=== PATIENT | male | born 1970 | race Caucasian/White ===

== ENCOUNTER 2022-11-20 13:43 | Outpatient (OUT) | payer OTHER, SELFPAY ==
[2022-11-20 14:20] LABS: Basophils Percent Auto 0.4 % (0.2-2.0); Eosinophils Absolute Auto 0.2 10^3/uL (0.0-0.7); Eosinophils Percent Auto 2.7 % (0.9-7.0); Hematocrit 43.6 % (42.0-54.0); Hemoglobin 15.4 g/dL (14.0-18.0); Immature Granulocytes Abs Auto 0.04 10^3/uL (0.00-0.03); Immature Granulocytes Pct Auto 0.5 % (0.0-0.5); Lymphocytes Absolute Auto 1.8 10^3/uL (1.2-3.8); Lymphocytes Percent Auto 24.5 % (20.5-60.0); Mean Corpuscular HGB Conc 35.3 g/dL (29.9-35.2); Mean Corpuscular Hemoglobin 28.8 pg (25.9-34.0); Mean Corpuscular Volume 81.6 fL (80.0-94.0); Mean Platelet Volume 9.9 fL (9.5-13.5); Monocytes Absolute Auto 0.5 10^3/uL (0.3-0.8); Monocytes Percent Auto 6.6 % (1.7-12.0); Neutrophils Absolute Auto 4.9 10^3/uL (1.4-6.5); Neutrophils Percent Auto 65.3 % (43.0-75.0); Platelet Count 231 10^3/uL (150-450); Red Blood Count 5.34 10^6/uL (4.70-6.10); Red Cell Distribution Width 12.8 % (11.0-15.0); White Blood Count 7.4 10^3/uL (4.0-11.0)
[2022-11-20 14:40] LABS: Estimated Average Glucose 146 mg/dL; Glycohemoglobin A1C 6.7 % (4.5-6.2)
[2022-11-20 14:58] LABS: Alanine Aminotransferase 52 U/L (16-63); Albumin Globulin Ratio 1.2; Albumin Level 4.1 g/dL (3.4-5.0); Alkaline Phosphatase 83 U/L (46-116); Anion Gap 12.6; Aspartate Amino Transferase 20 U/L (15-37); BUN Creatinine Ratio 21.4; Bilirubin Direct 0.2 mg/dL (0.0-0.2); Bilirubin Total 0.9 mg/dL (0.2-1.0); Carbon Dioxide 28.4 mmol/L (21.0-32.0); Chloride 101 mmol/L (98-107); Chol HDL Ratio 6.7; Cholesterol 208 mg/dL (<=200); Estimated GFR (African America >60 (>=60); Estimated GFR (Non-African Ame >60 (>=60); Globulin 3.3 g/dL; Glucose 237 mg/dL (74-106); HDL Cholesterol 31 mg/dL (40-60); Sodium 139 mmol/L (136-145); Thyroid Stimulating Hormone 1.243 uIU/mL (0.358-3.740); Total Protein 7.4 g/dL (6.4-8.2); Triglycerides 451 mg/dL (<=150); VLDL CHOLESTEROL 90.2 mg/dL
[2022-11-20 15:02] LABS: LDL Cholesterol Direct 108 mg/dL
[2022-11-20 15:12] LABS: Prostate Specific Antigen Scrn 0.41 ng/mL (<=4.00)
== END 2022-11-20 13:44 | disposition home or self-care (01) ==
LOC: LAB 13:46
PROVIDERS: PCP Family Medicine; Visit Provider Family Medicine
DX: Z00.00 Encounter for general adult medical examination without abnormal findings (principal); Z12.5 Encounter for screening for malignant neoplasm of prostate
CPT/HCPCS: 36415; 80048; 80061; 80076; 83036; 83721; 84443; 85025; G0103

== ENCOUNTER 2024-08-28 07:24 | Emergency (ER) | payer OTHER, SELFPAY ==
[2024-08-28 07:24] VITALS: BP 132/84; PULSE 78; TEMP 36.4; O2SAT 96; BMI 43.4
[2024-08-28 07:26] VITALS: PULSE 77
--- NOTE | 2024-08-28 07:32 | CT_ITS ---
The [address] [address] Patient Name: JAGJIT FERREIRA MRN: [id number] date: 1970 Sex: M Assigned Patient Location: ED.MAIN Current Patient Location: ED.MAIN Accession/Order Number: [id number] Exam Date: 08/28/2024 08:37 Report Date: 08/28/2024 08:40 At the request of: DELVIS ANN MD Procedure: CT head/brain wo con CT BRAIN WITHOUT CONTRAST: CLINICAL HISTORY: Vertigo. Dizziness and nausea since yesterday. COMPARISON: None TECHNIQUE: Contiguous axial unenhanced images were obtained through the brain. This CT exam was performed using one or more following dose reduction techniques: Automated exposure control, adjustment of the mA and/or kV according to patient size, or use of iterative reconstruction technique. FINDINGS: The ventricles are normal in size and position. A prominent perivascular spaces visualized on the right. There are no areas of abnormal attenuation. There is no hemorrhage, mass effect or extra-axial collections. There is minimal ethmoid mucosal thickening. The remaining imaged paranasal sinuses and mastoid air cells are clear. CT/CT head/brain wo con IMPRESSION: NO ACUTE INTRACRANIAL ABNORMALITY. Impression dictated by: Jerrica De Anda M.D. 08/28/2024 8:40 AM Dictation Location: [place] [address] Electronically authenticated by: [id number] Y Date: 08/28/2024 08:40
--- NOTE | 2024-08-28 07:32 | ECG_ITS ---
The [facility] Test Date: 2024-08-28 Pat Name: JAGJIT FERREIRA Department: Room: - Gender: Male Public Health Specialist: : 1970 Requested By: 1030 Order Number: [id number] Reading MD: KRISTIE KIDD M.D. Measurements Intervals [place] Rate: 77 P: 255 IN: 140 QRS: 21 QRSD: 96 T: -7 QT: 404 QTc: 436 Interpretive Statements Ectopic atrial rhythm 2440 Incomplete right bundle branch block 9140 abnormal rhythm ECG No previous ECG available for comparison Electronically Signed On 08-28-2024 18:24:38 EDT by KRISTIE KIDD M.D.
--- NOTE | 2024-08-28 07:32 | XR_ITS ---
The [place] [id number] Patient Name: JAGJIT FERREIRA MRN: [id number] date: 1970 Sex: M Assigned Patient Location: ED.MAIN Current Patient Location: ED.MAIN Accession/Order Number: [id number] Exam Date: 08/28/2024 08:36 Report Date: 08/28/2024 08:37 At the request of: DELVIS ANN MD Procedure: XR chest 1V PORTABLE AP ERECT CHEST 0733 hours CLINICAL HISTORY: Vertigo and nausea since yesterday COMPARISON: None Evaluation is slightly limited by large body habitus. The heart is within normal limits. There is no vascular congestion. The lungs, as visualized, are clear. There is no effusion or pneumothorax. The osseous structures are intact. End plate spurring is seen. XR/XR chest 1V IMPRESSION: NO ACUTE FINDINGS Impression dictated by: Jerrica De Anda M.D. 08/28/2024 8:37 AM Dictation Location: [place] [address] Electronically authenticated by: [id number] Y Date: 08/28/2024 08:37
--- NOTE | 2024-08-28 07:33 | ED.GENADUL1 ---
HPI HPI - General Adult General Chief complaint: Dizziness Stated complaint: dizziness Time Seen by Provider: 08/28/24 07:29 Source: patient Mode of arrival: ambulance Limitations: no limitations History of Present Illness HPI narrative: 54-year-old male presents to the emergency department for dizziness. He describes a spinning and off-balance sensation that began yesterday. It subsided and then came back today. If he stands up he feels like he is going to fall down. He has only a minimal headache. There is been no trauma or fever or vomiting. No localized weakness. He has never had these symptoms previously. Related Data Home Medications ?Medication ?Instructions ?Recorded ?Confirmed atorvastatin 40 mg tablet 40 mg PO DAILY 08/28/24 08/28/24 hydrochlorothiazide 25 mg tablet 25 mg PO DAILY 08/28/24 08/28/24 nabumetone 500 mg tablet 500 mg PO BID PRN pain 08/28/24 08/28/24 paroxetine HCl 20 mg tablet 20 mg PO DAILY 08/28/24 08/28/24 semaglutide 0.25 mg or 0.5 mg (2 0.5 mg subcut QWEEK 08/28/24 08/28/24 mg/3 mL) subcutaneous pen injector (Ozempic) trazodone 50 mg tablet 50 mg PO DAILY 08/28/24 08/28/24 Previous Rx's ?Medication ?Instructions ?Recorded meclizine 25 mg tablet 25 mg PO QID PRN dizziness #20 tabs 08/28/24 Allergies Allergy/AdvReac Type Severity Reaction Status Date / Time No Known Drug Allergies Allergy Verified 08/28/24 07:30 Review of Systems ROS Narrative A ten point review of systems is negative except as noted above. PFSH PFSH Social History Little interest or pleasure in doing things: not at all Feeling down, depressed, or hopeless: not at all Exam Narrative Exam Narrative: Nurses note and vital signs reviewed and patient is not hypoxic. General: The patient appears well and in no apparent distress. Patient is resting comfortably on cart. Skin: Warm, dry, no pallor noted. There is no rash noted. Head: Normocephalic, atraumatic Eye: Normal conjunctiva, no drainage, EOMI. PERRL Ears, Nose, Mouth, and Throat: oral mucosa is moist. Nares patent. Cardiovascular: Regular Rate and Rhythm Respiratory: Patient is in no distress, no accessory muscle use, lungs are clear to auscultation, no wheezing, rales or rhonchi Back: non-tender, no CVA tenderness bilaterally to percussion. GI: Soft and nontender Musculoskeletal: The patient has no evidence of calf tenderness, no pitting edema, symmetrical pulses noted bilaterally Neurological: A&O, normal speech; upper and lower extremity strength 5 out of 5 and symmetric Psychiatric: Cooperative Constitutional Vital Signs, click to edit/add: Last Vital Signs Temp 97.5 F L 08/28/24 07:24 Pulse 78 08/28/24 07:24 Resp 16 08/28/24 07:24 BP 132/84 08/28/24 07:24 Pulse Ox 98 08/28/24 07:41 O2 Del Method Room Air 08/28/24 07:41 Course Vital Signs Vital signs: Vital Signs Temperature 97.5 F L 08/28/24 07:24 Pulse Rate 78 08/28/24 07:24 Respiratory Rate 16 08/28/24 07:24 Blood Pressure 132/84 08/28/24 07:24 Pulse Oximetry 96 08/28/24 07:24 Oxygen Delivery Method Room Air 08/28/24 07:24 Temperature 97.5 F L 08/28/24 07:24 Pulse Rate 78 08/28/24 07:24 Respiratory Rate 16 08/28/24 07:24 Blood Pressure 132/84 08/28/24 07:24 Pulse Oximetry 98 08/28/24 07:41 Oxygen Delivery Method Room Air 08/28/24 07:41 Medical Decision Making MDM Narrative Medical decision making narrative: His workup including CT brain is negative. He was given Antivert here and prescribed Antivert and he is able to be released home. The patient is comfortable at this point going home. Treatment diagnosis and follow-up were discussed with the patient and his . Differential Diagnosis Differential Diagnosis: Vertigo, labyrinthitis, intracranial mass, intracranial hemorrhage, anemia Lab Data Lab results reviewed: Yes I reviewed the patient's lab results Labs: Lab Results 08/28/24 Range/Units 07:41 WBC 5.2 (4.0-11.0) 10^3/uL RBC 4.81 (4.70-6.10) 10^6/uL Hgb 14.0 (14.0-18.0) g/dL Hct 38.6 L (42.0-54.0) % MCV 80.2 (80.0-94.0) fL MCH 29.1 (25.9-34.0) pg MCHC 36.3 H (29.9-35.2) g/dL RDW 13.2 (11.0-15.0) % Plt Count 149 L (150-450) 10^3/uL MPV 10.0 (9.5-13.5) fL Neut % (Auto) 57.5 (43.0-75.0) % Lymph % (Auto) 27.5 (20.5-60.0) % [place] % (Auto) 10.3 (1.7-12.0) % Eos % (Auto) 2.9 (0.9-7.0) % Baso % (Auto) 0.6 (0.2-2.0) % Neut # (Auto) 3.0 (1.4-6.5) 10^3/uL Lymph # (Auto) 1.4 (1.2-3.8) 10^3/uL [place] # (Auto) 0.5 (0.3-0.8) 10^3/uL Eos # (Auto) 0.2 (0.0-0.7) 10^3/uL Baso # (Auto) 0.0 (0.0-0.1) 10^3/uL Abs Immat Gran (auto) 0.06 H (0.00-0.03) 10^3/uL Imm/Tot Granulo (auto) 1.2 H (0.0-0.5) % Sodium 143 (136-145) mmol/L Potassium 3.6 (3.5-5.1) mmol/L Chloride 105 (98-107) mmol/L Carbon Dioxide 27.7 (21.0-32.0) mmol/L Anion Gap 13.9 BUN 18.0 (7.0-18.0) mg/dL Creatinine 1.03 (0.70-1.30) mg/dL Est GFR ( Amer) >60 (>=60 mL/min/1.73m^2) Est GFR (Non-Af Amer) >60 (>=60 mL/min/1.73m^2) BUN/Creatinine Ratio 17.5 Glucose 214 H (74-106) mg/dL Calcium 8.5 (8.5-10.1) mg/dL Imaging Data CT scan - head: Radiologist's impression: ITS Impressions Chest X-Ray 08/28/24 07:32 IMPRESSION: NO ACUTE FINDINGS Impression dictated by: Jerrica De Anda M.D. 08/28/2024 8:37 AM Dictation Location: [facility] Electronically authenticated by: [id number] Y Date: 08/28/2024 08:[address] 08/28/24 07:32 IMPRESSION: NO ACUTE INTRACRANIAL ABNORMALITY. Impression dictated by: Jerrica De Anda M.D. 08/28/2024 8:40 AM Dictation Location: [facility] Electronically authenticated by: [id number] Y Date: 08/28/2024 08:40 ECG Data Attestation: I personally reviewed and interpreted this ECG as follows: (EKG on my interpretation shows sinus rhythm with rate of 70) Discharge Plan Discharge Chief Complaint: Dizziness Clinical Impression: Vertigo Patient Disposition: Home, Self-Care Time of Disposition Decision: 08:50 Condition: Good Mode of Transportation: Private Vehicle Prescriptions / Home Meds: New meclizine 25 mg tablet 25 mg PO QID PRN (Reason: dizziness) Qty: 20 0RF No Action atorvastatin 40 mg tablet 40 mg PO DAILY hydrochlorothiazide 25 mg tablet 25 mg PO DAILY Ozempic 0.25 mg or 0.5 mg (2 mg/3 mL) pen injector 0.5 mg SUBCUT QWEEK trazodone 50 mg tablet 50 mg PO DAILY paroxetine HCl 20 mg tablet 20 mg PO DAILY nabumetone 500 mg tablet 500 mg PO BID PRN (Reason: pain) Print Language: Bahraini Instructions: Vertigo (ED) Referrals: Yonas Carrazna MD [Primary Care Provider, Family Practice] - 1 week
--- OUTSIDE RECORDS SUMMARY | 2024-08-28 07:33 | XMS_ITS | Patient Health Record ---
Author Organization [facility] Address [address] [place] [address] Care Team Providers Care Promotion Writer Name Role Phone Yonas Carranza Primary Care Provider Chetan Giraldo Unavailable [phone] Self, Referral Unavailable Unavailable Reason For Referral No Information Medications Medication SIG (Take, Route, Fr equency, Duration) Notes Start Date End Date Status Vitamin C Active Tylenol Active NexIUM Active Flonase Active Aleve Active hydroCHLOROthiazide Active multivitamin Active Advil Active ZyrTEC Active Social History Tobacco Use: Social History Observation Description Date Details (start date - stop date) Never Smoker NA - NA Smoking History Question Answer Notes Smoking Status NonSmoker Problems Problem Type SNOMED Code ICD Code Onset Dates Problem Status W/U Status Risk Notes Problem [id number] Primary osteoarthritis of left knee (M17.12) Active confirmed Problem 85329347 Acute pain of le ft knee (M25.562) Active confirmed Plan Of Treatment No Information Insurance Providers Payer Name Payer Address Payer Phone Subscriber Number Group Number Insured Name Patient Relationship to Insured Coverage Start Date Coverage End Date Medical [facility] [place] [address] [place] [address] [id number] JAGJIT FERREIRA Self - patient is the insured Medical (General) History Medical History History ICD Code High Blood Pressure: Yes Sleep apnea: Yes CPAP Machine: Yes Do you use the CPAP machine? Yes Surgical History Surgery Date(Month/Year) left knee 1994 1995 wisdom teeth 12/2017 carpal tunnel-sol hands
--- OUTSIDE RECORDS SUMMARY | 2024-08-28 07:33 | XMS_ITS | Clinical Summary ---
Author Organization [facility] Address [address] [place] [address] Care Team Providers Care Manager Technical Training Name Role Phone Yonas Carranza MD Unavailable Yonas Carranza MD Primary Care Provider [phone] Allergies No known active allergies Medications albuterol (2.5 MG/3ML) 0.083% nebulizer solutionIndicatio ns:Acute bronchitis due to other specified organisms TAKE 3ml via NEBULIZER EVERY 4 HOURS NEEDED FOR WHEEZING and SHORTNESS OF BREATH 90 mL 2 4 Active semaglutide (Ozempic, 0.25 or 0.5 MG/DOSE,) 2 MG/1.5ML solution pen-injectorIndic ations:Type 2 diabetes mellitus with hyperglycemia, without long-term current use of insulin ([facility]) Inject 0.5 mg under the skin 1 (one) time per week 1 each 1 5 Active Blood Glucose Monitoring Suppl (Blood Glucose Monitor System) w/Device kitIndications:Ty pe 2 diabetes mellitus with hyperglycemia, without long-term current use of insulin ([facility]) 1 each Daily 1 kit 5 Active albuterol HFA 90 mcg/act inhalerIndication s:SOB (shortness of breath) Inhale 2 puffs every 4 (four) hours if needed for shortness of breath or wheezing 18 g 2 5 Active hydroCHLOROthiazi de (HYDRODiuril) 25 MG tabletIndications :Essential (primary) hypertension Take 1 tablet (25 mg) by mouth Daily 30 tablet 5 5 Active testosterone cypionate (Depo-Testosteron e) 200 MG/ML injectionIndicati ons:Testicular hypofunction Inject 0.5 mL (100 mg) into the shoulder, thigh, or buttocks every 14 (fourteen) days 10 mL 1 5 Active Semaglutide,0.25 or 0.5MG/DOS, (Ozempic, 0.25 or 0.5 MG/DOSE,) 2 MG/3ML solution pen-injectorIndic ations:Type 2 diabetes mellitus with hyperglycemia, without long-term current use of insulin ([facility]) Inject 0.5 mg under the skin every 7 (seven) days 3 mL 3 5 Active atorvastatin (Lipitor) 40 MG tabletIndications :Hyperlipidemia, unspecified Take 1 tablet (40 mg) by mouth at bedtime 30 tablet 5 5 Active PARoxetine (Paxil) 20 MG tabletIndications :Generalized anxiety disorder Take 1 tablet (20 mg) by mouth Daily 30 tablet 5 5 Active traZODone (Desyrel) 50 MG tabletIndications :Type 2 diabetes mellitus with hyperglycemia, without long-term current use of insulin ([facility]) Take 1 tablet (50 mg) by mouth at bedtime 30 tablet 3 5 Active Glucose Blood (Blood Glucose Test Strips 333) stripIndications: Type 2 diabetes mellitus with hyperglycemia, without long-term current use of insulin ([facility]) 1 each by In Vitro route Daily 50 strip 5 Active Accu-Chek FastClix Lancets miscIndications:T ype 2 diabetes mellitus with hyperglycemia, without long-term current use of insulin ([facility]) Test daily 102 each 5 Active nabumetone (Relafen) 500 MG tabletIndications :Pain in right shoulder Take 1 tablet (500 mg) by mouth 2 (two) times a day as needed for moderate pain or mild pain 60 tablet 5 5 Active Active Problems Problem Noted Date Diagnosed Date Encounter for long-term (current) use of medicat ions 05/06/2024 Annual physical exam 04/07/2024 Assessment & Plan (04/07/2024 10:07 AM EST): Due for labs. Discussed proper diet and regular aerobic exercise. Need aerobic exercise 5-6 days a week for 30 minutes at a time. Smaller portions and limit total calories. Never had colon cancer screening and willing to have cologuard. Tetanus every 10 years. Advised not to smoke. Benign hypertension 2023 Assessment & Plan (04/07/2024 10:07 AM EST): BP elevated but states controlled at home and monitor PRN. Assessment & Plan (2023 3:37 PM EST): BP controlled and monitor PRN. Chronic neck pain 2023 Dyslipidemia 2023 Generalized anxiety disorder 2023 Assessment & Plan (2023 3:37 PM EST): Symptoms controlled with paxil and continue. Gastroesophageal reflux disease 2023 Male hypogonadism 2023 Persistent disorder of initiating or maintaining sleep 2023 Obstructive sleep apnea (adult) (pediatric) 09/2023 Assessment & Plan (2023 3:38 PM EST): Sleeping well with CPAP and continue. Patient is benefiting from PAP therapy. Right shoulder pain 2023 Primary osteoarthritis of left knee 2023 Type 2 diabetes mellitus wit h hyperglycemia, without long-term current use of insulin 2023 Assessment & Plan (04/07/2024 10:07 AM EST): Not checking BS and due for A1C. Stick to ADA diet and limit carbs. Assessment & Plan (2023 3:38 PM EST): Not checking BS and due for A1C. Stick to ADA diet and limit carbs. Vitamin D deficiency 2023 Class 3 severe obesity due t o excess calories with serious comorbidity and body mass index (BMI) of 40.0 to 44.9 in adult 2023 Assessment & Plan (04/07/2024 10:07 AM EST): Discussed proper diet and regular aerobic exercise. Recommend Weight Watchers and need to limit calories and smaller portions. Need to increase activity and regular aerobic exercise several days a week for 30 minutes at a time. Primary insomnia 2023 Assessment & Plan (04/07/2024 10:07 AM EST): Not sleeping well and try trazodone. Assessment & Plan (2023 3:38 PM EST): Sleeping well with restoril and use PRN. Resolved Problems Problem Noted Date Diagnosed Date Resolved Date Acute bronchitis due to othe r specified organisms 2023 04/07/2024 Assessment & Plan (2023 3:37 PM EST): Continued symptoms and complete levaquin. Treat with prednisone tapered over 12 days. Use albuterol PRN. Encounters Date Type Department Care Team Description 07/08/2024 Refill [facility] [address] [place] [phone] Yonas Carranza MD Pain in right shoulder 07/06/2024 Refill [facility] [address] [place] [phone] Yonas Carranza MD Pain in right shoulder 07/06/2024 Refill [facility] [address] [place] [phone] Yonas Carranza MD Type 2 diabetes mellitus with hyperglycemia, without long-term current use of insulin (HCC) from Last 3 Months Family History Medical History Relation Name Comments Cancer Father Leukemia Father No Known Problems Mother Relation Name Status Comments Father Mother Social History Tobacco Use Types Packs/Day Years Used Date Smoking Tobacco: Never Smokeless Tobacco: Never Tobacco Cessation:Counseling Given: Not Answered Social Connection and Isolation Panel [NHANES] A nswer Date Recorded Frequency of Communication with Friends and Fami ly Not on file 04/07/2024 Frequency of Social Gatherings with Friends and Family Not on file 04/07/2024 Attends Caodaism Services Not on file 04/07 Active Member of Clubs or Organizations Not on f ile 04/07/2024 Attends Club or Organization Meetings Not on julia e 04/07/2024 Are you , , di vorced, , never , or living with a partner? 04/07/2024 AUDIT-C Answer Date Recorded Q1: How often do you have a drink containing alcohol? Never 04/07/2024 Q2: How many drinks containi ng alcohol do you have on a typical day when you are drinking? Patient does not drink Q3: How often do you have si x or more drinks on one occasion? Never 04/07/2024 [facility] ional [facility] - Occupational Stress Questionnaire Answer Date Recorded Do you feel stress - tense, restless, nervous, or anxious, or unable to sleep at night because your mind is troubled all the time - these days? To some extent 04/07/2024 Exercise Vital Sign Answer Date Recorde d On average, how many days pe r week do you engage in moderate to strenuous exercise (like a brisk walk)? 4 days 02/26/2023 On average, how many minutes do you engage in exercise at this level? 40 min 02/26/2023 Sex and Gender Information Value Date Recorded Sex Assigned at Not on file Legal Sex Male 7:22 PM EDT Gender Identity Not on file Sexual Orientation Not on file Last Filed Vital Signs Vital Sign Reading Time Taken Comments Blood Pressure 162/102 04/07/2024 9:12 AM EST Pulse 79 04/07/2024 9:12 AM EST Temperature 36.1 C (97 F) 04/07/2024 9:12 AM EST Respiratory Rate - - Oxygen Saturation 96% 04/07/2024 9:12 AM EST Inhaled Oxygen Concentration - - Weight 118 kg (261 lb) 04/07/2024 9:12 AM EST Height 165.1 cm (5' 5 ) 04/07/2024 9:12 AM EST Body Mass Index 43.43 04/07/2024 9:12 AM EST Plan of Treatment Upcoming Encounters Date Type Department Care Team (Late st Contact Info) Description 10/13/2024 8:45 AM EDT Office Visit [facility] [address] [place] [address] Yonas Carranza MD [address] [place] [address] Health Maintenance Due Date Last Done Comments CT Colonography 1972 Colonoscopy 1972 FIT 1970 FOBT 1970 Sigmoidoscopy 1970 Diabetes: Urine Protein Screening 1991 Diabetes: Hemoglobin A1C 07/12/2024 04/14/2024 Influenza Vaccine (#1) 2024 4, 01/11/2012, 01/24/2010 Diabetes: Retinopathy Screening 01/29/2025 Colorectal Cancer Screening 05/12/2027 FIT-DNA 05/12/2027 05/11/2024 Goals Goal Patient Goal Type Associated Problems Recent Progress Patient-Stated? Author Help patient manage antidepressant medication Care Plan Patient on antidepressant monitoring plan No XAVIER AMARO Baseline PHQ-9 Care Plan Baseline PHQ-9 No XAVIER AMARO Procedures Procedure Name Priority Date/Time Associated Diagnosis Comments LAB COLOGUARD COLON CANCER SCREEN Routine 05/11/2024 11:00 AM EDT Colon cancer screening HEMOGLOBIN A1C Routine 04/14/2024 10:38 AM EST Annual physical exam from Last 3 Months or Most Recently Relevant to Health Maintenance Results * Cologuard?? colon cancer screening (05/11/2024 11:00 AM EDT) NONINV COLON CA DNA+OCC BLD SCRN STL-IMP Negative Negative 05/16/2024 1:36 PM EDT [facility] (CLIA #:[id number]) Comment: NEGATIVE TEST RESULT. A negative Cologuard result indicates a low likelihood that a colorectal cancer (CRC) or advanced adenoma (adenomatous polyps with more advanced pre-malignant features) is present. The chance that a person with a negative Cologuard test has a colorectal cancer is less than 1 in 1500 (negative predictive value >99.9%) or has an advanced adenoma is less than 5.3% (negative predictive value 94.7%). These data are based on a prospective cross-sectional study of 10,000 individuals at average risk for colorectal cancer who were screened with both Cologuard and colonoscopy. (Juany Perez al, N Engl J Med 2014;370(14):0918-1386) The normal value (reference range) for this assay is negative. COLOGUARD RE-SCREENING RECOMMENDATION: Periodic colorectal cancer screening is an important part of preventive healthcare for asymptomatic individuals at average risk for colorectal cancer. Following a negative Cologuard result, the [place] Cancer Society and U.S. Multi-Society Task Force screening guidelines recommend a Cologuard re-screening interval of 3 years. References: [place] [employer] Guideline for Colorectal Cancer Screening: https://www.cancer.org/cancer/slepy-xyqmap-ckxras/jotsgqlzg-soossarkv-zgyhwhy/ac s-rec ommendations.html.; Cornelio DK, Josh REZA, Maria T ReddyK, Colorectal Cancer Screening: Recommendations for Physicians and Patients from the U.S. Multi-Society Task Force on Colorectal Cancer Screening , Am J Gastroenterology 2017; 112:5701-0250. TEST DESCRIPTION: Composite algorithmic analysis of stool DNA-biomarkers with hemoglobin immunoassay. Quantitative values of individual biomarkers are not reportable and are not associated with individual biomarker result reference ranges. Cologuard is intended for colorectal cancer screening of adults of either sex, 45 years or older, who are at average-risk for colorectal cancer (CRC). Cologuard has been approved for use by the U.S. FDA. The performance of Cologuard was established in a cross sectional study of average-risk adults aged 50-84. Cologuard performance in patients ages 45 to 49 years was estimated by sub-group analysis of near-age groups. Colonoscopies performed for a positive result may find as the most clinically significant lesion: colorectal cancer [4.0%], advanced adenoma (including sessile serrated polyps greater than or equal to 1cm diameter) [20%] or non- advanced adenoma [31%]; or no colorectal neoplasia [45%]. These estimates are derived from a prospective cross-sectional screening study of 10,000 individuals at average risk for colorectal cancer who were screened with both Cologuard and colonoscopy. (Juany Naranjo, N Engl J Med 2014;370(14):1171-6073.) Cologuard may produce a false negative or false positive result (no colorectal cancer or precancerous polyp present at colonoscopy follow up). A negative Cologuard test result does not guarantee the absence of CRC or advanced adenoma (pre-cancer). The current Cologuard screening interval is every 3 years. ([place] Cancer Society and U.S. Multi-Society Task Force). Cologuard performance data in a 10,000 patient pivotal study using colonoscopy as the reference method can be accessed at the following location: www.[employer]/results. Additional description of the Cologuard test process, warnings and precautions can be found at www.cologuard.com. Stool specimen (specimen) 05/11/2024 11:00 AM EDT 05/13/2024 11:55 AM EDT Yonas Carranza MD LAB MOLECULAR DIAGNOSTICS ORDERA BLES Final Result .[employer] [employer] (CLIA #:[id number]) [address] [address], [employer] (CLIA #:[id number]) [address] [address] * (ABNORMAL) Hemoglobin A1c (04/14/2024 10:38 AM EST) Hemoglobin A1C 10.0(H) <5.7 % of total Hgb [facility] Comment: For someone without known diabetes, a hemoglobin A1c value of 6.5% or greater indicates that they may have diabetes and this should be confirmed with a follow-up test. For someone with known diabetes, a value <7% indicates that their diabetes is well controlled and a value greater than or equal to 7% indicates suboptimal control. A1c targets should be individualized based on duration of diabetes, age, comorbid conditions, and other considerations. Currently, no consensus exists regarding use of hemoglobin A1c for diagnosis of diabetes for children. Blood Venous blood specimen / Unknown 04/14/2024 10:38 AM EST 04/14/2024 10:39 AM EST Narrative [facility] - 04/15/2024 6:53 AM EST PATIENT UNABLE TO VOID; ADVISED TO RETURN FOR COLLECTION. Resulting Agency Comment Performing Organization Information Site ID: QPT Name: [facility] Address: [address] [place] [address] Director: Landon Meneses MD Yonas Carranza MD LAB BLOOD ORDERABLES Final Resul t [facility] from Last 3 Months or Most Recently Relevant to Health Maintenance Additional Health Concerns Active Problems Noted Date Diagnosed Date Patient on antidepressant monitoring plan 2024 Baseline PHQ-9 05/28/2024 Insurance [employer] Care Teams Manager Technical Training Relationship Specialty Start Date End Date Yonas Carranza MD [address] [place] [phone] PCP - Medical [place] [employer] 02/26/15 02/25/99 Yonas Carranza MD [address] [place] [address] PCP - General Family Medicine 04/07/24
--- OUTSIDE RECORDS SUMMARY | 2024-08-28 07:33 | XMS_ITS | Encounter Summary ---
Author Organization [facility] Address [address] [facility] [place] [address] Care Team Providers Care Sand Conditioner Machine Name Role Phone Yonas Carranza MD Primary Care Provider [phone] Yonas Carranza MD Unavailable Yonas Carranza MD Primary Care Provider [phone] Reason for Visit * Reason Comments Med Refill Encounter Details Date Type Department Care Team (Late st Contact Info) Description 09/12/2023 Refill [facility] [address] [place] [phone] Yonas Carranza MD [address] [place] [address] Insomnia, unspecified Social History Tobacco Use Types Packs/Day Years Used Date Smoking Tobacco: Never Smokeless Tobacco: Never Exercise Vital Sign Answer Date Recorde d [...] on file Sexual Orientation Not on file documented as of this encounter Plan of Treatment Upcoming Encounters Date Type Department Care Team (Late st Contact Info) Description 10/13/2024 8:45 AM EDT Office Visit [facility] [address] [place] [address] Yonas Carranza MD [address] [place] [address] documented as of this encounter Visit Diagnoses Diagnosis Insomnia, unspecified documented in this encounter Care Teams Sand Conditioner Machine Relationship Specialty Start Date End Date Yonas Carranza MD PCP - General Family Medicine 11/20/22 04/06/24 Yonas Carranza MD [address] [place] [address] PCP - Medical [place] [employer] 02/26/15 02/25/99 Yonas Carranza MD [address] [place] [address] PCP - General Family Medicine 04/07/24 documented as of this encounter
--- OUTSIDE RECORDS SUMMARY | 2024-08-28 07:34 | XMS_ITS | Clinical Summary ---
Author Organization [facility] Address [id number] [address] [place] [address] Care Team Providers Care Test Rider Name Role Phone Unavailable Primary Care Provider Unavailabl e Social History Tobacco Use Types Packs/Day Years Used Date Smoking Tobacco: Never Assessed Childcare Answer Date Recorded Childcare Unknown 08/07/2018 Employment Answer Date Recorded Employment Unknown 08/07/2018 Sex and Gender Information Value Date Recorded Sex Assigned at Not on file Legal Sex Male 12:01 PM EDT Gender Identity Not on file Sexual Orientation Not on file Plan of Treatment Not on file Medical Devices Not on file
--- OUTSIDE RECORDS SUMMARY | 2024-08-28 07:34 | XMS_ITS | Clinical Summary ---
Author Organization [facility] Address [facility] [place] [address] Care Team Providers Care Data Entry Clerk Name Role Phone Tania Matthews Primary Care Provider [phone] Allergies No known active allergies Medications Saw Agness 80 mg ORAL capsule Take 80 mg by mouth once daily. 0 03/27/19 12 Active Cholecalciferol, Vitamin D3, 1,000 unit ORAL Tab Take 5 tablets by mouth once daily. 0 03/27/19 12 Active multivitamin ORAL tablet Take 1 tablet by mouth once daily. 0 03/27/19 12 Active Glucosamine-Moises droit-Vit C-Mn (GLUCOSAMINE CHONDROITIN MAXSTR) 500-400 mg ORAL Cap Take 1 capsule by mouth three times daily. 0 03/27/19 12 Active lactobacillus rhamnosus (PROBIOTIC) 10 billion cell ORAL capsule Take 1 capsule by mouth once daily. 0 03/27/19 12 Active esomeprazole (NEXIUM) 40 mg ORAL capsule Take 1 capsule by mouth once daily. 0 03/27/19 12 Active loratadine-pseud oephedrine 24hr 10-240 mg (LORATA-DINE D) 10-240 mg ORAL Tb24 Take 1 tablet by mouth once daily as needed. 0 03/27/19 12 Active acetaminophen 500 mg ORAL tablet Take 1 tablet by mouth every 4 hours as needed. 0 03/27/19 12 Active naproxen 500 mg ORAL tablet Take 0.5 tablets by mouth as needed. for pain. Take with food. 0 03/27/19 12 Active Ibuprofen 200 mg ORAL Cap Take by mouth every 4 hours as needed. 0 03/27/19 12 Active testosterone cypionate 200 mg/mL INTRAMUSC. injectionIndicat ions:Other testicular hypofunction Inject 1 mL intramuscularly every 2 weeks. 2 mL 5 06/23/19 12 Active Active Problems Problem Noted Date Diagnosed Date Hypogonadism male 05/29/2011 Family History Medical History Relation Comments Leukemia acute myelocytic [Other] Father age 49, agent orange Hyperlipidemia [Other] Mother Hypertension Mother Relation Status Comments Father Mother Social History Tobacco Use Types Packs/Day Years Used Date Smoking Tobacco: Former Comments:Quit 5 years ago. Alcohol Use Standard Drinks/Week Comments Yes 0 (1 standard drink = 0.6 oz pur e alcohol) Only two or three beers a year Sex and Gender Information Value Date Recorded Sex Assigned at Not on file Legal Sex Male 10:13 AM EST Gender Identity Not on file Sexual Orientation Not on file Last Filed Vital Signs Vital Sign Reading Time Taken Comments Blood Pressure 175/104 04/12/2011 8:15 AM EST Pulse 116 04/12/2011 8:15 AM EST Temperature - - Respiratory Rate 16 04/12/2011 8:15 AM EST Oxygen Saturation 96% 04/12/2011 8:15 AM EST Inhaled Oxygen Concentration - - Weight 130 kg (286 lb 9.6 oz) 03/27/2011 10:39 A M EST Height 168.3 cm (5' 6.26 ) 03/27/2011 10:[address] Body Mass Index 45.9 03/27/2011 10:39 AM EST Plan of Treatment Health Maintenance Due Date Last Done Comments Anxiety Screening 1990 Depression Screening 1990 HIV Screening 1990 Hepatitis C Screening 1990 DTaP,Tdap,Td Vaccine (1 - Tdap) 1991 Hepatitis B Vaccine (1 of 3 - 19+ 3-dose series) 03/[address] Colonography 2017 Cologuard (FIT-DNA) 2017 Colonoscopy 2017 Colorectal Cancer Screening 2017 Diabetes Screening 2017 Fecal Occult Blood 2017 Sigmoidoscopy 2017 Pneumococcal Vaccine: 50+ (1 of 1 - PCV) 2022 Shingrix Vaccine (1 of 2) 2022 Covid-19 Vaccine ( season) 2023 Influenza Vaccine (#1) 2024 Care Teams Data Entry Clerk Relationship Specialty Start Date End Date Tania Matthews [address] [place] [address] PCP - General Family Medicine 02/03/11
--- OUTSIDE RECORDS SUMMARY | 2024-08-28 07:34 | XMS_ITS | Encounter Summary ---
Author Organization [facility] Address [address] [facility] [place] [address] Care Team Providers Care Production Mechanic Name Role Phone Yonas Carranza MD Unavailable Yonas Carranza MD Primary Care Provider [phone] Encounter Details Date Type Department Care Team (Late st Contact Info) Description 04/15/2024 Orders Only [facility] [address] [place] [address] Yonas Carranza MD [address] [place] [id number] Social History Tobacco Use Types Packs/Day Years Used Date Smoking Tobacco: Never Smokeless Tobacco: Never Social Connection and Isolation Panel [NHANES] A nswer Date Recorded Frequency of Communication with Friends and Fami ly Not on file 04/07/2024 Frequency of Social Gatherings with Friends and Family Not on file 04/07/2024 Attends Buddhist Services Not on file 04/07 Active Member [...] more drinks on one occasion? Never 04/07/2024 [facility] [place] of Occupat ional Health - Occupational Stress [...] 8:45 AM EDT Office Visit [facility] [address] [place] [address] Yonas Carranza MD [address] [place] [address] documented as of this encounter Visit Diagnoses Not on filedocumented in this encounter Care Teams Production Mechanic Relationship Specialty Start Date End Date Yonas Carranza MD [address] [place] [phone] PCP - Medical [place] [employer] 02/26/15 02/25/99 Yonas Carranza MD [address] [place] [phone] PCP - General Family Medicine 04/07/24 documented as of this encounter
--- OUTSIDE RECORDS SUMMARY | 2024-08-28 07:34 | XMS_ITS | Encounter Summary ---
Author Organization [facility] Address [address] [facility] [place] [address] Care Team Providers Care Manager Investment Banking Name Role Phone Yonas Carranza MD Unavailable Yonas Carranza MD Primary Care Provider [phone] Encounter Details Date Type Department Care Team (Late st Contact Info) Description 05/06/2024 Orders Only [facility] [address] [place] [address] Yonas Carranza MD [address] [place] [phone] Social History Tobacco Use Types Packs/Day Years Used Date Smoking Tobacco: Never Smokeless Tobacco: Never Social Connection and Isolation Panel [NHANES] A nswer Date Recorded Frequency of Communication with Friends and Fami ly Not on file 04/07/2024 Frequency of Social Gatherings with Friends and Family Not on file 04/07/2024 Attends Temple Services Not on file 04/07 Active Member [...] more drinks on one occasion? Never 04/07/2024 [facility] [place] of Occupat ional Health - Occupational Stress [...] Office Visit [facility] [address] [place] [address] Yonas Carranza MD [address] [place] [address] documented as of this encounter Visit Diagnoses Not on filedocumented in this encounter Care Teams Manager Investment Banking Relationship Specialty Start Date End Date Yonas Carranza MD [address] [place] [phone] PCP - Medical [place] [employer] 02/26/15 02/25/99 Yonas Carranza MD [address] [place] [phone] PCP - General Family Medicine 04/07/24 documented as of this encounter
[2024-08-28 07:41] VITALS: O2SAT 98
[2024-08-28 07:51] LABS: Hematocrit 38.6 % (42.0-54.0); Hemoglobin 14.0 g/dL (14.0-18.0); Immature Granulocytes Abs Auto 0.06 10^3/uL (0.00-0.03); Immature Granulocytes Pct Auto 1.2 % (0.0-0.5); Lymphocytes Absolute Auto 1.4 10^3/uL (1.2-3.8); Mean Corpuscular HGB Conc 36.3 g/dL (29.9-35.2); Mean Corpuscular Hemoglobin 29.1 pg (25.9-34.0); Mean Corpuscular Volume 80.2 fL (80.0-94.0); Platelet Count 149 10^3/uL (150-450); Red Blood Count 4.81 10^6/uL (4.70-6.10); White Blood Count 5.2 10^3/uL (4.0-11.0)
[2024-08-28 07:57] LABS: Anion Gap 13.9; Blood Urea Nitrogen 18.0 mg/dL (7.0-18.0); Calcium 8.5 mg/dL (8.5-10.1); Carbon Dioxide 27.7 mmol/L (21.0-32.0); Chloride 105 mmol/L (98-107); Estimated GFR (African America >60 (>=60 mL/min/1.73m^2); Estimated GFR (Non-African Ame >60 (>=60 mL/min/1.73m^2); Glucose 214 mg/dL (74-106); Potassium 3.6 mmol/L (3.5-5.1); Sodium 143 mmol/L (136-145)
[2024-08-28] MEDS: MECLIZINE HCL 12.5 MG TABLET 25 MG PO (08:29)
== END 2024-08-28 09:09 | disposition home or self-care (01) ==
PROVIDERS: Emergency Provider Emergency Medicine; PCP Family Medicine
DX: R42 Dizziness and giddiness (principal)
CPT/HCPCS: 36415; 70450; 71045; 80048; 85025; 93005; 99285

== ENCOUNTER 2024-12-22 09:49 | Outpatient (OUT) | payer OTHER, SELFPAY ==
--- OUTSIDE RECORDS SUMMARY | 2024-12-22 09:52 | XMS_ITS | Patient Health Record ---
Author Organization [facility] Address [address] [place] [address] Care Team Providers Care Electronic Sales And Service Technician Name Role Phone Jamilahanane Yonas Primary Care Provider Chetan Giraldo Unavailable [phone] Self, Referral Unavailable Unavailable Reason For Referral No Information Medications Medication SIG (Take, Route, Frequency, Duration) Notes Start Date End Date Status Vitamin C ActiveTylenolActiveNexIUMActiveFlonaseActiveAleveActivehydroCHLOROthiazideActive multivitaminActiveAdvilActiveZyrTECActive Social History Tobacco Use: Social History Observation Description Date Details (start date - stop date) Never Smoker NA - NA Smoking History Question Answer Notes Smoking Status NonSmoker Problems Problem Type SNOMED Code ICD Code Onset Dates Problem Status W/U Status Risk Notes Problem [id number] Primary osteoarthritis of left knee (M17.12) [id number] pain of left knee (M25.562)Activeconfirmed Plan Of Treatment No Information Insurance Providers Payer Name Payer Address Payer Phone Subscriber Number Group Number Insured Name Patient Relationship to Insured Coverage Start Date Coverage End Date [facility] [address] [place] [address] [place] [address] [id number] JAGJIT FERREIRA Self - patient is the insured Medical (General) History Medical History History ICD Code High Blood Pressure: Yes Sleep apnea: YesCPAP Machine: YesDo you use the CPAP machine? YesSurgical History Surgery Date(Month/Year) left knee 1994 1995 wisdom teeth 12/2017 carpal tunnel-sol hands
--- OUTSIDE RECORDS SUMMARY | 2024-12-22 09:52 | XMS_ITS | Clinical Summary ---
Author Organization [facility] Healthcare Address [address] [place] [address] Care Team Providers Care Professor Of Spanish Name Role Phone Yonas Carranza MD Unavailable Yonas Carranza MD Primary Care Provider [phone] Allergies No known active allergies Medications MedicationSigDispense QuantityRefillsLast FilledStart DateEnd DateStatus albuterol (2.5 MG/3ML) 0.083% nebulizer solution Indications:Acute bronchitis due to other specified organismsTAKE 3ml via NEBULIZER EVERY 4 HOURS NEEDED FOR WHEEZING and SHORTNESS OF BREATH 90 mL 4Active semaglutide (Ozempic, 0.25 or 0.5 MG/DOSE,) 2 MG/1.5ML solution pen-injector Indications:Type 2 diabetes mellitus with hyperglycemia, without long-term current use of insulin ([facility])Inject 0.5 mg under the skin 1 (one) time per week 1 each 5Active Blood Glucose Monitoring Suppl (Blood Glucose Monitor System) w/Device kit Indications:Type 2 diabetes mellitus with hyperglycemia, without long-term current use of insulin (HCC)1 each Daily 1 kit 5Active albuterol HFA 90 mcg/act inhaler Indications:SOB (shortness of breath)Inhale 2 puffs every 4 (four) hours if needed for shortness of breath or wheezing 18 g 5Active hydroCHLOROthiazide (HYDRODiuril) 25 MG tablet Indications:Essential (primary) hypertensionTake 1 tablet (25 mg) by mouth Daily 30 tablet 5Active testosterone cypionate (Depo-Testosterone) 200 MG/ML injection Indications:Testicular hypofunctionInject 0.5 mL (100 mg) into the shoulder, thigh, or buttocks every 14 (fourteen) days 10 mL 5Active atorvastatin (Lipitor) 40 MG tablet Indications:Hyperlipidemia, unspecifiedTake 1 tablet (40 mg) by mouth at bedtime 30 tablet 5045Active PARoxetine (Paxil) 20 MG tablet Indications:Generalized anxiety disorderTake 1 tablet (20 mg) by mouth Daily 30 tablet 5Active traZODone (Desyrel) 50 MG tablet Indications:Type 2 diabetes mellitus with hyperglycemia, without long-term current use of insulin ([facility])Take 1 tablet (50 mg) by mouth at bedtime 30 tablet 3045Active Glucose Blood (Blood Glucose Test Strips 333) strip Indications:Type 2 diabetes mellitus with hyperglycemia, without long-term current use of insulin ([facility])1 each by In Vitro route Daily 50 strip 1105Active Accu-Chek FastClix Lancets [facility] Indications:Type 2 diabetes mellitus with hyperglycemia, without long-term current use of insulin ([facility])Test daily 102 each 1105Active nabumetone (Relafen) 500 MG tablet Indications:Pain in right shoulderTake 1 tablet (500 mg) by mouth 2 (two) times a day as needed for moderate pain or mild pain 60 tablet 5Active meclizine (Antivert) 25 MG tablet Take 25 mg by mouth 4 (four) times a day as jstygk055Active Semaglutide,0.25 or 0.5MG/DOS, (Ozempic, 0.25 or 0.5 MG/DOSE,) 2 MG/3ML solution pen-injector Indications:Type 2 diabetes mellitus with hyperglycemia, without long-term current use of insulin ([facility])Inject 0.5 mg under the skin every 7 (seven) days 3 mL 5Active Active Problems ProblemNoted DateDiagnosed DateBPPV (benign paroxysmal positional vertigo) 09/01/2024 Assessment & Plan (09/04/2024 11:55 AM EDT): Recent symptoms and improved with home epply maneuvers. PT gave handout for home exercises and use PRN. Use meclizine PRN. Able to return to work 09/09 without restriction. Encounter for long-term (current) use of iioeytwcwac75/11/2025nnual physical exam04/07/2024 Assessment & Plan (04/07/2024 10:07 AM EST): Due for labs. Discussed proper diet and regular aerobic exercise. Need aerobic exercise 5-6 days a week for 30 minutes at a time. Smaller portions and limit total calories. Never had colon cancer screening and willing to have cologuard. Tetanus every 10 years. Advised not to smoke. Benign eeehxvabgnfm90/08/2024 Assessment & Plan (04/07/2024 10:07 AM EST): BP elevated but states controlled at home and monitor PRN. Assessment & Plan (2023 3:37 PM EST): BP controlled and monitor PRN. Chronic neck pain03/05/20237854Ypwthyggatux49/08/2024Generalized anxiety disorder 2023 Assessment & Plan (2023 3:37 PM EST): Symptoms controlled with paxil and continue. Gastroesophageal reflux jmrvjrc5503/05/2023Male yyvrsqsiabkw44/08/2024ersistent disorder of initiating or maintaining sleep2023Obstructive sleep apnea (adult) (pediatric)2023 Assessment & Plan (2023 3:38 PM EST): Sleeping well with CPAP and continue. Patient is benefiting from PAP therapy. Right shoulder pain2023rimary osteoarthritis of left knee2023Type 2 diabetes mellitus with hyperglycemia, without long-term current use of insulin 2023 Assessment & Plan (04/07/2024 10:07 AM EST): Not checking BS and due for A1C. Stick to ADA diet and limit carbs. Assessment & Plan (2023 3:38 PM EST): Not checking BS and due for A1C. Stick to ADA diet and limit carbs. Vitamin D avntbasaot53/08/2024lass 3 severe obesity due to excess calories with serious comorbidity and body mass index (BMI) of40.0 to 44.9 in adult2023 Assessment & Plan (04/07/2024 10:07 AM EST): Discussed proper diet and regular aerobic exercise. Recommend Weight Watchers and need to limit calories and smaller portions. Need to increase activity and regular aerobic exercise several days a week for 30 minutes at a time. Primary whklahwo30/08/2024 Assessment & Plan (04/07/2024 10:07 AM EST): Not sleeping well and try trazodone. Assessment & Plan (2023 3:38 PM EST): Sleeping well with restoril and use PRN. Resolved Problems ProblemNoted DateDiagnosed DateResolved DateAcute bronchitis due to other specified iuvupeuby86 Assessment & Plan (2023 3:37 PM EST): Continued symptoms and complete levaquin. Treat with prednisone tapered over 12 days. Use albuterolPRN. Encounters DateTypeDepartmentCare VrizComdkphoqzu25/11/2025Refill [facility] [address] [place] [address] Yonas Carranza MD Type 2 diabetes mellitus with hyperglycemia, without long-term current use of insulin (HCC)from Last 3 Months Family History Medical HistoryRelationNameCommentsCancerFatherLeukemiaFatherNo Known Problems MotherRelationNameStatusCommentsFatherMother Social History Tobacco UseTypesPacks/DayYears UsedDateSmoking Tobacco: NeverSmokeless Tobacco: Never Tobacco Cessation:Counseling Given: Not Answered Social Connection and Isolation PanelAnswerDate RecordedFrequency of Communication with Friends and FamilyNot on file04/07/2024Frequency of Social Gatherings with Friends and FamilyNot on file04/07/2024ttends Yazdanism ServicesNot on file04/07/2024tive Member of Clubs or OrganizationsNot on file 04/07/2024ttends Club or Organization MeetingsNot on file04/07/2024re you , , , , never , or living with a partner? Sjmwfgb1304/07/2024UDIT-CAnswerDate RecordedQ1: How often do you have a drink containing alcohol?Never04/07/2024Q2: How many drinks containing alcohol do you have on a typical day when you are drinking?Patient does not drink04/07/2024Q3: How often do you have six or more drinks on one occasion?Never04/07/2024[facility] - Occupational Stress QuestionnaireAnswerDate RecordedDo you feel stress - tense, restless, nervous, or anxious, or unable to sleep at night because yourmind is troubled all the time - these days?To some rnenrl3604/07/2024Exercise Vital SignAnswerDate RecordedOn average, how many days per week do you engage in moderate to strenuous exercise (like a brisk walk)?4 days02/26/2023On average, how many minutes do you engage in exercise at this level?40 min02/26/2023Sex and Gender InformationValueDate RecordedSex Assigned at BirthNot on fileLegal LcbEiqa3105/10/2022 7:22 PM EDTGender IdentityNot on file Sexual OrientationNot on file Last Filed Vital Signs Vital SignReadingTime TakenCommentsBlood Rxtyvqmc537/7407 11:21 AM EDT Nvtak2140 11:21 AM XUMSjfdsstoyvx23 ??C (95 ??F)09/04/2024 11:21 AM EDT Respiratory Ytox2717 11:21 AM EDTOxygen Jxmmdwybys27%09/04/2024 11:21 AM EDTInhaled Oxygen Concentration--Zylpia113 kg (264 lb)09/04/2024 11:21 AM EDT Njzaxs992.1 cm (5' 5 )09/04/2024 11:21 AM EDTBody Mass Index43.9309/04/2024 11:21 AM EDT Plan of Treatment Health MaintenanceDue DateLast DoneCommentsCT Frleyvyslyrp72/08/1973Colonoscopy 1972FIT1972FOBT1972 7497Jlpwbbjlkdgtf58/08/1973Diabetes: Urine Protein Atplgpvun47/08/1992Diabetes: Hemoglobin A1C5004/14/2024Influenza Vaccine (#1), 01/11/2012, 01/24/2010Diabetes: Retinopathy Iouxicjzc44olorectal Cancer Uleqyimwe82/16/2028FIT-DNA Goals GoalPatient Goal TypeAssociated ProblemsRecent ProgressPatient-Stated?Author Help patient manage antidepressant medication Care PlanPatient on antidepressant monitoring Judi Flood MA Baseline PHQ-9 Care PlanBaseline PHQ-9Judi Pratt MA Procedures Procedure NamePriorityDate/TimeAssociated DiagnosisCommentsLAB COLOGUARD?? COLON CANCER QUTYNKSrbmkrz10/16/2025 11:00 AM EDT Colon cancer screening HEMOGLOBIN O0FRjnkmgx48/17/2025 10:38 AM EST Annual physical exam from Last 3 Months or Most Recently Relevant to Health Maintenance Results * Cologuard?? colon cancer screening (05/11/2024 11:00 AM EDT)ComponentValueRef RangeTest MethodAnalysis TimePerformed AtPathologist SignatureNONINV COLON CA DNA+OCC BLD SCRN STL-VTNOjgswmhuZizcsprd99/21/2025 1:36 PM EDTEXPowerSmart (CLIA #:[id number])Comment: NEGATIVE TEST RESULT. A negative Cologuard result indicates a low likelihood that a colorectal cancer (CRC) or advanced adenoma (adenomatous polyps with more advanced pre-malignant features) ??is present. The chance that a person with a negative Cologuard test has a colorectal cancer is less than 1in 1500 (negative predictive value >99.9%) or has an advanced adenoma is less than 5.3% (negative predictive value 94.7%). These data are based on a prospective cross-sectional study of 10,000individuals at average risk for colorectal cancer who were screened with both Cologuard and colonoscopy. (Juany Perez al, N Engl J Med 2014;370(14):2083-6625) The normal value (reference range) for this assay is negative. COLOGUARD RE-SCREENING RECOMMENDATION: Periodic colorectal cancer screening is an important part ofpreventive healthcare for asymptomatic individuals at average risk for colorectal cancer. ??Following a negative Cologuard result, the [employer] and U.S. Multi-Society Task Force screening guidelines recommend a Cologuard re-screening interval of 3 years. References: [place] [employer] Guideline for Colorectal Cancer Screening: https://www.cancer.or g/cancer/cquwj-tsuquz-ebpsty/jtpibmpfj-wiqzgavfp-dbdpqla/acs-recommendations.htm keyla; Cornelio ROSAS, Josh REZA, Maria T SONG, Colorectal Cancer Screening: Recommendations for Physicians and Patients from the U.S. Multi-Society Task Force on Colorectal Cancer Screening , Am J Gastroenterology 2017; 112:2701-1948. TEST DESCRIPTION: Composite algorithmic analysis of stool DNA-biomarkers with hemoglobin immunoassay. ?? Quantitative values of individual biomarkers are not reportable and are not associated with individual biomarker result reference ranges. Cologuard is intended for colorectal cancer screening ofadults of either sex, 45 years or older, [...] colonoscopy. (Juany Naranjo, N Engl J Med 2014;370(14):4472-8422.) Cologuard may produce a false negative or false positive result (no colorectal cancer or precancerous polyp present at colonoscopy follow up). A negative Cologuard test result does not guarantee the absence of CRC or advanced adenoma (pre-cancer). The current Cologuard screening interval is every 3 years. ([employer] Society and U.S. Multi-Society Task Force). Cologuard performance data in a 10,000 patient pivotal study using colonoscopy as the reference method can be accessed at the following location: www.[employer].nap- Naturally Attached Parents/results. Additional description of the Cologuard test process, warnings and precautions can be found at www.cologuard.com. Specimen (Source)Anatomical Location / LateralityCollection Method / Volume Collection TimeReceived TimeStool specimen (specimen)05/11/2024 11:00 AM EDT 05/13/2024 11:55 AM EDT Narrative Authorizing ProviderResult TypeResult StatusMarc Naderer MDLAB MOLECULAR DIAGNOSTICS ORDERABLESFinal ResultPerforming OrganizationAddressCity/State/ZIP CodePhone Number .[employer] (CLIA #:[id number]) [address] [address], [place] [phone] [employer] (CLIA #:[id number]) [address] [address] * (ABNORMAL) Hemoglobin A1c (04/14/2024 10:38 AM EST)ComponentValueRef RangeTest MethodAnalysis TimePerformed AtPathologist SignatureHemoglobin A1C10.0(H)<5.7 % of total HgbQUESTComment: For someone without known diabetes, a hemoglobin [...] A1c for diagnosis of diabetes for children. Specimen (Source)Anatomical Location / LateralityCollection Method / Volume Collection TimeReceived TimeBloodVenous blood specimen / Ueezvxk2904/14/2024 10:38 AM EST04/14/2024 10:39 AM EST Narrative [facility] - 04/15/2024 6:53 AM EST PATIENT UNABLE TO VOID; ADVISED TO RETURN FOR COLLECTION. Resulting Agency Comment Performing Organization Information ?Site ID: [id number] ?Name: [facility] ?Address: [address] [place] [address], [address] [place] [id number] ?Director: Landon Meneses MD Authorizing ProviderResult TypeResult StatusMarc Tere MCFARLANELAB BLOOD ORDERABLES Final ResultPerforming OrganizationAddressCity/State/ZIP CodePhone Number [facility] from Last 3 Months or Most Recently Relevant to Health Maintenance Additional Health Concerns Active ProblemsNoted DateDiagnosed DatePatient on antidepressant monitoring plan 5Baseline PHQ-9005/28/[address] [place] [address] MemberSubscriberPlan / Payer (Effective 2022-Present)Name:Abraham Cabrera Relation to Subscriber:SelfName:Abraham Cabrera Payer ID:Not on file Group ID:[id number] Type:Not on file Address: [address] Care Teams Team MemberRelationshipSpecialtyStart DateEnd Date Yonas Carranza MD [address] [place] [phone] PCP - [facility] [place] [employer]02/26/1611 Yonas Carranza MD [address] [place] [phone] PCP - GeneralFamily Medicine04/07/24
--- OUTSIDE RECORDS SUMMARY | 2024-12-22 09:52 | XMS_ITS | Clinical Summary ---
Author Organization [facility] Address [facility] [place] [address] Care Team Providers Care Certified First Assistant Name Role Phone Tania Matthews MD Primary Care Provider [phone] Allergies No known active allergies Medications MedicationSigDispense QuantityRefillsLast FilledStart DateEnd DateStatus Saw Helper 80 mg ORAL capsule Take 80 mg by mouth once daily.ctive Cholecalciferol, Vitamin D3, 1,000 unit ORAL Tab Take 5 tablets by mouth once daily.ctive multivitamin ORAL tablet Take 1 tablet by mouth once daily.ctive Bdiviozeyhq-Pdynuqaeh-Dsd C-Mn (GLUCOSAMINE CHONDROITIN MAXSTR) 500-400 mg ORAL Cap Take 1 capsule by mouth three times daily.ctive lactobacillus rhamnosus (PROBIOTIC) 10 billion cell ORAL capsule Take 1 capsule by mouth once daily.ctive esomeprazole (NEXIUM) 40 mg ORAL capsule Take 1 capsule by mouth once daily.ctive loratadine-pseudoephedrine 24hr 10-240 mg (LORATA-DINE D) 10-240 mg ORAL Tb24 Take 1 tablet by mouth once daily as needed.ctive acetaminophen 500 mg ORAL tablet Take 1 tablet by mouth every 4 hours as needed.ctive naproxen 500 mg ORAL tablet Take 0.5 tablets by mouth as needed. for pain. Take with food.ctive Ibuprofen 200 mg ORAL Cap Take by mouth every 4 hours as needed.ctive testosterone cypionate 200 mg/mL INTRAMUSC. injection Indications:Other testicular hypofunctionInject 1 mL intramuscularly every 2 weeks. 2 mL ctive Active Problems ProblemNoted DateDiagnosed DateHypogonadism male05/29/2011 Family History Medical HistoryRelationCommentsLeukemia acute myelocytic [Other]FatherDied age 49, agent orangeHyperlipidemia [Other]MotherHypertensionMotherRelationStatus CommentsFatherMother Social History Tobacco UseTypesPacks/DayYears UsedDateSmoking Tobacco: Former Comments:Quit 5 years ago. Alcohol UseStandard Drinks/WeekCommentsYes0 (1 standard drink = 0.6 oz pure alcohol)Only two or three beers a yearSex and Gender InformationValueDate RecordedSex Assigned at BirthNot on fileLegal BttOyxy64/02/2012 10:13 AM EST Gender IdentityNot on fileSexual OrientationNot on file Last Filed Vital Signs Vital SignReadingTime TakenCommentsBlood Vohytdjc538/01108 8:15 AM EST Ghqzk67614/15/2012 8:15 AM ESTTemperature--Respiratory Vczm130304/12/2011 8:15 AM ESTOxygen Uwfmbpholo06%04/12/2011 8:15 AM ESTInhaled Oxygen Concentration-- Erhery023 kg (286 lb 9.6 oz)03/27/2011 10:39 AM BYDZlalyd138.3 cm (5' 6.26 ) 03/27/2011 10:39 AM ESTBody Mass Index45.9003/27/2011 10:39 AM EST Plan of Treatment Health MaintenanceDue DateLast DoneCommentsAnxiety Iuaferbia26/08/1991Depression Nstroiwdc14/08/1991HIV Frnfbfarx21/08/1991Hepatitis C Lpvixclfh98/08/1991 DTaP,Tdap,Td Vaccine (1 - Tdap)1991Hepatitis B Vaccine (1 of 3 - 19+ 3- dose series)1991Lipid Nlqjexofx03/08/2008CT Whkaaxdfzrhg62/08/2018 Cologuard (FIT-DNA)03/05/20176046Hywhlwkkjkl42/08/2018Colorectal Cancer Screening 2017Diabetes Fffoukhdd96/08/2018Fecal Occult Blood2017Sigmoidoscopy 2017Pneumococcal Vaccine: 50+ (1 of 1 - PCV)2022Shingrix Vaccine (1 of 2)2022ovid-19 Vaccine (1 - 2024- season)2024Influenza Vaccine (#1)2024 Care Teams Team MemberRelationshipSpecialtyStart DateEnd Date Tania Matthews MD [address] [place] [address] PCP - GeneralFamily Aheeeduz19/9/11
--- OUTSIDE RECORDS SUMMARY | 2024-12-22 09:52 | XMS_ITS | Clinical Summary ---
Author Organization [facility] Address [id number] [address] [place] [address] Care Team Providers Care Handstitching Machine Collar Feller Name Role Phone Unavailable Primary Care Provider Unavailabl e Social History Tobacco UseTypesPacks/DayYears UsedDateSmoking Tobacco: Never AssessedChildcare AnswerDate LprmnnfhHdpcbfkacHlixmiq99/12/2019EmploymentAnswerDate Recorded SaimldjhtoAnrmwse27/12/2019Sex and Gender InformationValueDate RecordedSex Assigned at BirthNot on fileLegal YtdSrvk9110/01/2014 12:01 PM EDTGender Identity Not on fileSexual OrientationNot on file Plan of Treatment Not on file Medical Devices Not on file
[2024-12-22 10:39] LABS: Microalbum Creatinine Ratio Ur 9.4 mg/g (0.0-29.9)
[2024-12-22 10:55] LABS: Alanine Aminotransferase 39 U/L (16-63); Albumin Globulin Ratio 1.4; Albumin Level 4.0 g/dL (3.4-5.0); Alkaline Phosphatase 63 U/L (46-116); Anion Gap 11.7; Aspartate Amino Transferase 12 U/L (15-37); Blood Urea Nitrogen 23.0 mg/dL (7.0-18.0); Calcium 8.4 mg/dL (8.5-10.1); Carbon Dioxide 31.9 mmol/L (21.0-32.0); Chloride 102 mmol/L (98-107); Cholesterol 146 mg/dL (<=200); Estimated GFR (African America >60 (>=60 mL/min/1.73m^2); Estimated GFR (Non-African Ame >60 (>=60 mL/min/1.73m^2); Globulin 2.8 g/dL; Glucose 209 mg/dL (74-106); HDL Cholesterol 33 mg/dL (40-60); Potassium 3.6 mmol/L (3.5-5.1); Sodium 142 mmol/L (136-145); Total Protein 6.8 g/dL (6.4-8.2); Triglycerides 165 mg/dL (<=150); VLDL CHOLESTEROL 33.0 mg/dL
== END 2024-12-22 09:50 | disposition home or self-care (01) ==
LOC: LAB 09:50
PROVIDERS: PCP Family Medicine; Visit Provider Family Medicine
DX: E11.65 Type 2 diabetes mellitus with hyperglycemia (principal); E78.5 Hyperlipidemia, unspecified; Z79.899 Other long term (current) drug therapy
CPT/HCPCS: 36415; 80053; 80061; 82043; 82570; 83036